=== PATIENT | female | born 1980 | race Caucasian/White ===

== ENCOUNTER 2019-05-03 05:12 | Day surgery (SDC) | payer BC ==
[2019-04-29 17:23] VITALS: BMI 22.6
[2019-05-03] MEDS ORDERED: PROPOFOL 20 ML ONE ×2 (09:47→11:11)
[2019-05-03] MEDS ORDERED: MIDAZOLAM HCL 2 MG/2 ML SINGLE DOSE VIAL ONE (09:47)
--- NOTE | 2019-05-03 10:58 | HP ---
History & Physical Update - History History: No Change - Physical Physical: No Change - Assessment Assessment: No Change - Plan Plan: No Change (Hysteroscopy, D&C)
--- NOTE | 2019-05-03 11:23 | OP ---
Operative Note - Note: Operative Date: 05/03/19 Pre-Operative Diagnosis: Atypical endometrial cells Operation: Hysteroscopy, D&C Findings: Pelvic exam with normal mobile uterus and no adnexal masses. Hysteroscopy showed a normal uterine cavity with normal endometrial lining. No masses or lesions. Post-Operative Diagnosis: Same as Pre-op Surgeon: Kaleb Gibbons Anesthesiologist/ANIMAL NUTRITION TEACHER: Amy Keller Anesthesia: General Specimens Removed: Endocervical curettings. endometrial curettings Estimated Blood Loss (mls): 5 Blood Volume Replaced (mls): 0 Fluid Volume Replaced (mls): 1,000 Operative Report Dictated: Yes
[2019-05-03] MEDS ORDERED: ONDANSETRON 4 MG/2 ML VIAL IVPUSH PRN (12:13)
[2019-05-03] MEDS ORDERED: LACTATED RINGERS SOLUTION 1,000 ML IV SCH (12:15)
--- NOTE | 2019-05-03 12:48 | OP ---
DATE OF OPERATION: 05/03/2019 PREOPERATIVE DIAGNOSIS: Atypical endometrial cells. POSTOPERATIVE DIAGNOSIS: Atypical endometrial cells. PROCEDURE: Hysteroscopy, dilation and curettage. SURGEON: Kaleb Gibbons MD ANESTHESIOLOGIST: Amy Keller MD ANESTHESIA: General. COMPLICATIONS: None. ESTIMATED BLOOD LOSS: 5 mL. PATHOLOGY: Endometrial curettings, endocervical curettings. INTRAVENOUS FLUIDS: 1000 mL. ESTIMATED BLOOD LOSS: 5 mL. FINDINGS: Examination under anesthesia revealed a small, mobile uterus with no pelvic or adnexal masses. Hysteroscopy revealed a normal endometrial cavity and normal endometrial lining without any lesions or masses. No complications during surgery. DESCRIPTION OF THE PROCEDURE: The patient was met preoperatively. Risks, benefits, and alternatives of surgery were discussed in details. The consent form was reviewed and explained. The patient verbalized her understanding and requested to proceed with surgery. The patient was brought to the OR with the IV running. She was placed on the surgical table in a supine position. The general anesthesia was achieved without difficulty. The patient was then placed in a dorsal lithotomy position using adjustable Tono stirrups. She was prepped and draped in the usual sterile fashion. Examination under anesthesia was with the findings as described above. The time-out was conducted as per standard protocol. A weighted speculum was introduced inside the vagina with good visualization of the cervix. The cervix was grasped with a single-tooth tenaculum. The cervical os was dilated to accommodate a size 17 Mahoney dilator. An endocervical curettage was performed. The hysteroscopy was performed with the findings as described above. The hysteroscope was then performed. Endometrial curettage was performed without complications. The instruments were removed from the patient. Sponge, lap, instrument counts were correct. Good hemostasis was noted. The patient was then returned to supine position. She was then transferred to recovery room awake and in stable condition. Caitlyn [id number]
[2019-05-03 13:53] VITALS: BP 132/76; PULSE 60
[2019-05-03 13:55] VITALS: TEMP 97.4
--- NOTE | 2019-05-04 17:39 | PATH ---
Surgical Pathology Report Patient Name: DA [facility]. Rec. #: [id number] /Age/Gender: 1980 (Age: 38) / F Account: [id number] Location: [facility] SURGICAL Taken: 05/03/2019 Received: 05/03/2019 Reported: 05/04/2019 Physicians: Kaleb Gibbons M.D. Specimen(s) Received A: ENDOCERVICAL CURETTINGS B: ENDOMETRIAL CURETTINGS Clinical History Atypical endometrial cells Final Diagnosis A. ENDOCERVICAL CURETTINGS, DILATION AND CURETTAGE: FRAGMENTS OF BENIGN ENDOCERVICAL TISSUE ADMIXED WITH MUCUS. B. ENDOMETRIAL CURETTINGS, DILATION AND CURETTAGE: FRAGMENTS OF ENDOMETRIAL POLYP, SECRETORY ENDOMETRIUM, AND BENIGN ENDOCERVICAL TISSUE. Electronically Signed Da Lundberg M.D. Gross Description A. Received in formalin labeled "endocervical curettings" are multiple irregular fragments of pink-shirley and hemorrhagic, mucoid soft tissue measuring 2 x 1.2 x 0.3 cm. Entire specimen is submitted in one cassette. B. Received in formalin labeled "endometrial curettings" are multiple irregular fragments of pink-shirley and hemorrhagic soft tissue measuring 2.5 x 2 x 0.4 cm. Entire specimen is submitted in one cassette. [email or web address]/05/03/2019 cuate/05/03/2019
== END 2019-05-03 13:15 | disposition home or self-care (01) ==
LOC: JASU-SURG 05:12
PROVIDERS: ATTEND Obstetrics & Gynecology
PROC: 0UDB7ZX Extraction of Endometrium, Via Natural or Artificial Opening, Diagnostic (ICD-10-PCS; principal; 2019-05-03 10:00)
PROC: 0UJD8ZZ Inspection of Uterus and Cervix, Via Natural or Artificial Opening Endoscopic (ICD-10-PCS; 2019-05-03 10:00)
DX: N84.0 Polyp of corpus uteri (principal)
CPT/HCPCS: 36415; 84703; 86850; 86900; 86901; 88305-TC; 94760